=== PATIENT | female | born 1960 | race Caucasian/White ===

== ENCOUNTER → 2020-07-25 09:38 | Outpatient (CLI) | payer OTHER, SELFPAY ==
--- NOTE | 2020-07-25 09:46 | XR_ITS ---
PROCEDURE: XR KNEE RT 4V CLINICAL INDICATION: right knee pain COMPARISON: No exams were available for comparison FINDINGS: No fracture or dislocation. No lytic or blastic change. There is normal mineralization. There are mild osteoarthritic changes of the medial compartment and the patellofemoral joint best detected on the patellar view. There is mild lateral patellar subluxation. Small suprapatellar effusion is noted. IMPRESSION: Minimal osteoarthritic change of the medial compartment and patellofemoral joint with mild lateral patellar subluxation of approximately 4 mm and small knee joint effusion. Dictated by: Declan Ramirez MD 07/25/2020 14:40 Declan Ramirez MD in [place] 07/25/2020 14:40
== END ==
PROVIDERS: PCP Family Medicine; Visit Provider Orthopaedic Surgery
DX: M25.561 Pain in right knee (principal)
CPT/HCPCS: 73564